=== PATIENT | male | born 1950 | race Caucasian/White ===

== ENCOUNTER 2017-05-18 12:58 | Inpatient (IN) ==
[2017-05-18] MEDS ORDERED: ALBUTEROL 2.5 MG/3 ML NEB RESP TX STA (14:10)
[2017-05-18 14:22] LABS: Basophils # 0.1 10*3/uL (0.0-0.2); Basophils % 0.7 % (0.0-0.8); Eosinophils # 0.2 10*3/uL (0.0-0.87); Hemoglobin 13.2 GM/DL (14.0-18.0); Immature Granulocytes % 0.3 %; Immature Granulocytes Absolute 0.02 #; Lymphocytes # 1.4 10*3/uL (1.4-4.0); Lymphocytes % 19.5 % (21.2-54.2); Mean Corpuscular HGB Conc 31.4 GM/DL (32-36); Mean Corpuscular Hemoglobin 27 PG (27-34); Mean Corpuscular Volume 86.8 FL (87-102); Mean Platelet Volume 9.7 FL (9.6-12.0); Monocytes # 0.7 10*3/uL (0.11-0.8); Neutrophils # 5.1 10*3/uL (1.4-7.4); Neutrophils % 68.5 % (38.7-73.9); Platelet Count 300 T/CUMM (130-400); Red Blood Count 4.84 MC/CUMM (3.8-5.5); Red Cell Distribution Width 13.5 % (9.3-17.3); White Blood Count 7.4 T/CUMM (4-12)
[2017-05-18 14:28] LABS: PT Patient Result 10.2 SECS; Partial Thromboplastin Time 26.4 SECS (0-40)
[2017-05-18 14:36] LABS: Alanine Aminotransferase 17 U/L (16-61); Albumin 3.5 G/DL (3.4-5.0); Alkaline Phosphatase 335 U/L (45-117); Aspartate Amino Transferase 62 U/L (0-37); Blood Urea Nitrogen 22 MG/DL (7-18); Calcium 8.7 MG/DL (8.5-10.1); Glucose 90 MG/DL (74-106); Osmolality,Calculated 281.4 MOS/KG (273-304); Potassium 4.5 MMOL/L (3.5-5.1); Sodium 140 MMOL/L (136-145); Total Protein 6.3 G/DL (6.4-8.3); Troponin I Only < 0.015 NG/ML (0.00-0.045)
[2017-05-18] MEDS ORDERED: ONDANSETRON 4 MG/2 ML VIAL IV PRN (18:00)
[2017-05-18] MEDS ORDERED: ACETAMINOPHEN 325 MG TABLET PO PRN (18:00)
[2017-05-18] MEDS ORDERED: PNEUMOCOCCAL VACCINE (13 VALENT) 0.5 ML SYRINGE IM ONE (18:04)
[2017-05-18] MEDS: SODIUM CHLORIDE 0.9% 1,000 ML IV SCH (18:30)
[2017-05-18] MEDS: FERROUS SULFATE 325 MG TABLET PO SCH ×2 (20:29→21:00)
[2017-05-18] MEDS: DOCUSATE SODIUM 100 MG CAPSULE PO SCH ×2 (20:29→21:00)
[2017-05-18] MEDS: GABAPENTIN 300 MG CAPSULE PO SCH (20:29)
[2017-05-18] MEDS: CARBIDOPA/LEVODOPA 25-100 MG TABLET PO SCH ×2 (20:29→21:00)
[2017-05-18] MEDS: traZODone 50 MG TABLET PO SCH (20:30)
[2017-05-18] MEDS: TAMSULOSIN 0.4 MG CAPSULE PO SCH (20:30)
[2017-05-19 07:05] LABS: Barbiturates Screen,Urine Negative (Negative); Benzodiazepines Screen,Urine Negative (Negative); Cannabinoid Screen,Urine Negative (Negative); Opiate Screen,Urine Positive (Negative); Phencyclidine Screen,Urine Negative (Negative)
[2017-05-19] MEDS ORDERED: EMBEDA PO SCH (09:00)
[2017-05-19 09:11] LABS: Basophils % 0.6 % (0.0-0.8); Eosinophils # 0.2 10*3/uL (0.0-0.87); Eosinophils % 3.2 % (0.00-10.9); Hematocrit 43.6 VOL% (42.0-52.0); Hemoglobin 13.9 GM/DL (14.0-18.0); Immature Granulocytes % 0.5 %; Immature Granulocytes Absolute 0.03 #; Lymphocytes # 1.3 10*3/uL (1.4-4.0); Lymphocytes % 20.6 % (21.2-54.2); Mean Corpuscular HGB Conc 31.9 GM/DL (32-36); Mean Corpuscular Hemoglobin 27 PG (27-34); Mean Corpuscular Volume 85.5 FL (87-102); Mean Platelet Volume 9.7 FL (9.6-12.0); Monocytes # 0.6 10*3/uL (0.11-0.8); Monocytes % 9.2 % (1.7-12.7); Neutrophils # 4.1 10*3/uL (1.4-7.4); Neutrophils % 65.9 % (38.7-73.9); Platelet Count 296 T/CUMM (130-400); Red Cell Distribution Width 13.4 % (9.3-17.3); White Blood Count 6.2 T/CUMM (4-12)
[2017-05-19 09:20] LABS: Albumin 3.3 G/DL (3.4-5.0); Bilirubin,Direct 0.42 MG/DL (0.0-0.20); Bilirubin,Indirect 0.3 MG/DL (0.0-1.0); Bilirubin,Total 0.7 MG/DL (0.2-1.0); Calcium 8.8 MG/DL (8.5-10.1); Ferritin 152.8 ng/ml (26-388); Free T4 (Free Thyroxine) 0.96 NG/DL (0.76-1.46); Osmolality,Calculated 279.5 MOS/KG (273-304); Potassium 4.8 MMOL/L (3.5-5.1); Thyroid Stimulating Hormone 3.17 uIU/ml (0.358-3.74); Total Protein 6.4 G/DL (6.4-8.3); VLDL CHOLESTEROL 25.6 MG/DL
[2017-05-19] MEDS: CARBIDOPA/LEVODOPA 25-100 MG TABLET PO SCH ×4 (10:15→21:14)
[2017-05-19] MEDS: AMANTADINE 100 MG CAPSULE PO SCH (10:15)
[2017-05-19] MEDS: GABAPENTIN 300 MG CAPSULE PO SCH ×4 (10:15→21:13)
[2017-05-19] MEDS: TAMSULOSIN 0.4 MG CAPSULE PO SCH ×2 (10:15→21:15)
[2017-05-19] MEDS: FLUDROCORTISONE 0.1 MG TABLET PO SCH (10:15)
[2017-05-19] MEDS: MULTIVITAMIN (CENTRUM) TABLET PO SCH (10:16)
[2017-05-19] MEDS: DOCUSATE SODIUM 100 MG CAPSULE PO SCH ×2 (10:16→21:15)
[2017-05-19] MEDS: PANTOPRAZOLE 40 MG TABLET PO SCH (10:16)
[2017-05-19] MEDS: ESCITALOPRAM 10 MG TABLET PO SCH (10:16)
[2017-05-19] MEDS: FERROUS SULFATE 325 MG TABLET PO SCH ×2 (10:16→21:15)
[2017-05-19] MEDS: amLODIPine 5 MG TABLET PO SCH (10:22)
[2017-05-19] MEDS: ASPIRIN EC 81 MG TABLET PO SCH (12:01)
[2017-05-19] MEDS ORDERED: HEPARIN/NACL 0.9% 2 UNITS/ML 1,000 ML IV ONE (12:12)
[2017-05-19] MEDS ORDERED: LIDOCAINE 1% 20 ML VIAL ONE (12:12)
[2017-05-19] MEDS ORDERED: NITROGLYCERIN DRIP 50 MG/250 ML BOTTLE IV ONE (12:20)
[2017-05-19] MEDS ORDERED: VERAPAMIL 5 MG/2 ML VIAL ONE (12:20)
[2017-05-19] MEDS ORDERED: ENOXAPARIN 60 MG/0.6 ML SYRINGE ONE (12:56)
[2017-05-19] MEDS ORDERED: diphenhydrAMINE CAP 25 MG CAPSULE PO ONE (13:00)
[2017-05-19] MEDS ORDERED: DIAZEPAM 5 MG TABLET PO ONE (13:00)
[2017-05-19] MEDS: traZODone 50 MG TABLET PO SCH (21:14)
[2017-05-20 06:01] LABS: Basophils % 0.5 % (0.0-0.8); Eosinophils # 0.2 10*3/uL (0.0-0.87); Eosinophils % 3.5 % (0.00-10.9); Hematocrit 43.9 VOL% (42.0-52.0); Hemoglobin 13.9 GM/DL (14.0-18.0); Immature Granulocytes % 0.3 %; Immature Granulocytes Absolute 0.02 #; Lymphocytes # 1.1 10*3/uL (1.4-4.0); Mean Corpuscular HGB Conc 31.7 GM/DL (32-36); Mean Corpuscular Hemoglobin 27 PG (27-34); Mean Corpuscular Volume 84.9 FL (87-102); Mean Platelet Volume 9.6 FL (9.6-12.0); Monocytes # 0.6 10*3/uL (0.11-0.8); Monocytes % 9.7 % (1.7-12.7); Neutrophils # 4.3 10*3/uL (1.4-7.4); Platelet Count 255 T/CUMM (130-400); Red Blood Count 5.17 MC/CUMM (3.8-5.5); Red Cell Distribution Width 13.3 % (9.3-17.3); White Blood Count 6.3 T/CUMM (4-12)
[2017-05-20 06:12] LABS: Calcium 8.9 MG/DL (8.5-10.1); Osmolality,Calculated 280.4 MOS/KG (273-304); Potassium 4.5 MMOL/L (3.5-5.1)
[2017-05-20 06:13] LABS: Albumin 3.1 G/DL (3.4-5.0); Bilirubin,Total 1.1 MG/DL (0.2-1.0); Calcium 8.8 MG/DL (8.5-10.1); Osmolality,Calculated 279.4 MOS/KG (273-304); Potassium 4.5 MMOL/L (3.5-5.1); Total Protein 6.4 G/DL (6.4-8.3)
[2017-05-20] MEDS: FERROUS SULFATE 325 MG TABLET PO SCH ×2 (09:08→20:42)
[2017-05-20] MEDS: PANTOPRAZOLE 40 MG TABLET PO SCH (09:08)
[2017-05-20] MEDS: amLODIPine 5 MG TABLET PO SCH (09:08)
[2017-05-20] MEDS: MULTIVITAMIN (CENTRUM) TABLET PO SCH (09:09)
[2017-05-20] MEDS: DOCUSATE SODIUM 100 MG CAPSULE PO SCH ×2 (09:09→20:44)
[2017-05-20] MEDS: AMANTADINE 100 MG CAPSULE PO SCH (09:10)
[2017-05-20] MEDS: ESCITALOPRAM 10 MG TABLET PO SCH (09:10)
[2017-05-20] MEDS: GABAPENTIN 300 MG CAPSULE PO SCH ×4 (09:10→20:43)
[2017-05-20] MEDS: FLUDROCORTISONE 0.1 MG TABLET PO SCH (09:10)
[2017-05-20] MEDS: CARBIDOPA/LEVODOPA 25-100 MG TABLET PO SCH ×4 (09:10→20:43)
[2017-05-20] MEDS: TAMSULOSIN 0.4 MG CAPSULE PO SCH ×2 (09:10→20:43)
[2017-05-20] MEDS: SODIUM CHLORIDE 0.9% 1,000 ML IV SCH ×2 (10:01)
[2017-05-20 11:26] LABS: Hepatitis A Ab IgM Quant 0.05 Index; Hepatitis A Ab IgM Result Negative (Negative); Hepatitis B Core IgM Quant 0.22 Index; Hepatitis B Core IgM Result Negative (Negative); Hepatitis B Surface Ag Quant < 0.10 Index; Hepatitis B Surface Ag Result Negative (Negative); Hepatitis C Virus Ab Quant 0.04 Index; Hepatitis C Virus Ab Result Negative (Negative)
[2017-05-20 14:07] LABS: Apearance,Urine CLEAR (Clear); Bilirubin,Urine Negative (Negative); Blood, Urine Negative (Negative); Glucose,Urine (UA) Negative (Negative); Ketones,Urine Negative (Negative); Nitrite,Urine Negative (Negative); Protein,Urine Negative; Urine Color Yellow (Yellow); Urine Specific Gravity 1.008 (1.001-1.035); Urine Urobilinogen < 2.0 EU/DL (0.2-1.0); WBC,Urine <1 /HPF (0-6)
[2017-05-20] MEDS: ASPIRIN EC 81 MG TABLET PO SCH (14:26)
[2017-05-20] MEDS ORDERED: MORPHINE 4 MG/1 ML VIAL IV ONE (14:44)
[2017-05-20] MEDS: traZODone 50 MG TABLET PO SCH (20:43)
[2017-05-21] MEDS: SODIUM CHLORIDE 0.9% 1,000 ML IV SCH (04:00)
[2017-05-21 07:01] LABS: Basophils % 0.2 % (0.0-0.8); Eosinophils # 0.1 10*3/uL (0.0-0.87); Hematocrit 38.7 VOL% (42.0-52.0); Hemoglobin 12.8 GM/DL (14.0-18.0); Immature Granulocytes % 0.3 %; Immature Granulocytes Absolute 0.03 #; Lymphocytes # 0.7 10*3/uL (1.4-4.0); Lymphocytes % 7.3 % (21.2-54.2); Mean Corpuscular HGB Conc 33.1 GM/DL (32-36); Mean Corpuscular Hemoglobin 28 PG (27-34); Monocytes # 1.1 10*3/uL (0.11-0.8); Monocytes % 10.7 % (1.7-12.7); Neutrophils % 80.5 % (38.7-73.9); Platelet Count 250 T/CUMM (130-400); Red Blood Count 4.66 MC/CUMM (3.8-5.5); Red Cell Distribution Width 13.5 % (9.3-17.3); White Blood Count 9.9 T/CUMM (4-12)
[2017-05-21 07:35] LABS: Calcium 8.5 MG/DL (8.5-10.1); Osmolality,Calculated 279.5 MOS/KG (273-304); Potassium 4.1 MMOL/L (3.5-5.1)
[2017-05-21] MEDS: TAMSULOSIN 0.4 MG CAPSULE PO SCH ×2 (08:12→20:32)
[2017-05-21] MEDS: DOCUSATE SODIUM 100 MG CAPSULE PO SCH ×2 (08:12→20:32)
[2017-05-21] MEDS: ESCITALOPRAM 10 MG TABLET PO SCH (08:12)
[2017-05-21] MEDS: MULTIVITAMIN (CENTRUM) TABLET PO SCH (08:12)
[2017-05-21] MEDS: AMANTADINE 100 MG CAPSULE PO SCH (08:13)
[2017-05-21] MEDS: CARBIDOPA/LEVODOPA 25-100 MG TABLET PO SCH ×4 (08:13→20:33)
[2017-05-21] MEDS: GABAPENTIN 300 MG CAPSULE PO SCH ×4 (08:13→20:33)
[2017-05-21] MEDS: amLODIPine 5 MG TABLET PO SCH (12:15)
[2017-05-21] MEDS: FERROUS SULFATE 325 MG TABLET PO SCH ×2 (12:15→20:32)
[2017-05-21] MEDS: ASPIRIN EC 81 MG TABLET PO SCH (12:16)
[2017-05-21] MEDS: PANTOPRAZOLE 40 MG TABLET PO SCH (12:16)
[2017-05-21] MEDS: PIPERACILLIN/TAZOBACTAM 3,375 MG in SODIUM CHLORIDE 0.9% 100 ML IV SCH (15:50)
[2017-05-21] MEDS: HYDROmorphone 2 MG/1 ML VIAL IV PRN (15:51)
[2017-05-21] MEDS: traZODone 50 MG TABLET PO SCH (20:32)
[2017-05-22] MEDS: PIPERACILLIN/TAZOBACTAM 3,375 MG in SODIUM CHLORIDE 0.9% 100 ML IV SCH ×3 (01:04→21:29)
[2017-05-22 05:24] LABS: Basophils % 0.3 % (0.0-0.8); Eosinophils # 0.2 10*3/uL (0.0-0.87); Eosinophils % 3.1 % (0.00-10.9); Hematocrit 39.2 VOL% (42.0-52.0); Hemoglobin 13.3 GM/DL (14.0-18.0); Immature Granulocytes % 0.5 %; Immature Granulocytes Absolute 0.03 #; Lymphocytes # 0.7 10*3/uL (1.4-4.0); Lymphocytes % 12.2 % (21.2-54.2); Mean Corpuscular HGB Conc 33.9 GM/DL (32-36); Mean Corpuscular Hemoglobin 28 PG (27-34); Mean Corpuscular Volume 82.4 FL (87-102); Mean Platelet Volume 9.7 FL (9.6-12.0); Monocytes # 0.8 10*3/uL (0.11-0.8); Monocytes % 13.6 % (1.7-12.7); Neutrophils # 4.3 10*3/uL (1.4-7.4); Neutrophils % 70.3 % (38.7-73.9); Platelet Count 262 T/CUMM (130-400); Red Blood Count 4.76 MC/CUMM (3.8-5.5); Red Cell Distribution Width 13.5 % (9.3-17.3); White Blood Count 6.1 T/CUMM (4-12)
[2017-05-22 05:29] LABS: PT Patient Result 10.9 SECS
[2017-05-22 06:03] LABS: Albumin 2.9 G/DL (3.4-5.0); Bilirubin,Total 4.8 MG/DL (0.2-1.0); Calcium 8.7 MG/DL (8.5-10.1); Osmolality,Calculated 280.4 MOS/KG (273-304); Potassium 3.9 MMOL/L (3.5-5.1)
[2017-05-22 06:11] LABS: Albumin 2.9 G/DL (3.4-5.0); Bilirubin,Direct 3.84 MG/DL (0.0-0.20); Bilirubin,Indirect 0.7 MG/DL (0.0-1.0); Bilirubin,Total 4.5 MG/DL (0.2-1.0); Total Protein 6.1 G/DL (6.4-8.3)
[2017-05-22] MEDS: SODIUM CHLORIDE 0.9% 1,000 ML IV SCH (09:01)
[2017-05-22] MEDS: MULTIVITAMIN (CENTRUM) TABLET PO SCH (09:02)
[2017-05-22] MEDS: FERROUS SULFATE 325 MG TABLET PO SCH (09:02)
[2017-05-22] MEDS: TAMSULOSIN 0.4 MG CAPSULE PO SCH (09:02)
[2017-05-22] MEDS: DOCUSATE SODIUM 100 MG CAPSULE PO SCH (09:02)
[2017-05-22] MEDS: ESCITALOPRAM 10 MG TABLET PO SCH (09:03)
[2017-05-22] MEDS: amLODIPine 5 MG TABLET PO SCH (09:03)
[2017-05-22] MEDS: GABAPENTIN 300 MG CAPSULE PO SCH ×3 (09:03→17:03)
[2017-05-22] MEDS: PANTOPRAZOLE 40 MG TABLET PO SCH (09:03)
[2017-05-22] MEDS: AMANTADINE 100 MG CAPSULE PO SCH (09:04)
[2017-05-22] MEDS: CARBIDOPA/LEVODOPA 25-100 MG TABLET PO SCH ×3 (09:04→17:03)
[2017-05-22] MEDS ORDERED: fentaNYL 100 MCG/2 ML VIAL ONE (10:27)
[2017-05-22] MEDS ORDERED: MIDAZOLAM 2 MG/2 ML VIAL ONE (10:28)
[2017-05-22] MEDS ORDERED: PROPOFOL 200 MG/20 ML VIAL IV ONE (10:38)
[2017-05-22] MEDS ORDERED: LIDOCAINE 1% 5 ML VIAL ONE (10:38)
[2017-05-22] MEDS ORDERED: ONDANSETRON 4 MG/2 ML VIAL ONE (10:38)
[2017-05-22] MEDS ORDERED: INDOMETHACIN SUPP 50 MG SUPP RECTAL ONE (11:00)
[2017-05-23] MEDS: DOCUSATE SODIUM 100 MG CAPSULE PO SCH ×3 (00:20→21:35)
[2017-05-23] MEDS: traZODone 50 MG TABLET PO SCH ×2 (00:20→21:35)
[2017-05-23] MEDS: FERROUS SULFATE 325 MG TABLET PO SCH ×3 (00:21→21:35)
[2017-05-23] MEDS: TAMSULOSIN 0.4 MG CAPSULE PO SCH ×3 (00:21→21:35)
[2017-05-23] MEDS: GABAPENTIN 300 MG CAPSULE PO SCH ×5 (00:21→21:35)
[2017-05-23] MEDS: CARBIDOPA/LEVODOPA 25-100 MG TABLET PO SCH ×5 (00:22→21:35)
[2017-05-23 06:17] LABS: Basophils # 0.1 10*3/uL (0.0-0.2); Basophils % 0.4 % (0.0-0.8); Eosinophils # 0.2 10*3/uL (0.0-0.87); Eosinophils % 1.1 % (0.00-10.9); Hematocrit 37.2 VOL% (42.0-52.0); Hemoglobin 12.4 GM/DL (14.0-18.0); Immature Granulocytes % 0.7 %; Immature Granulocytes Absolute 0.15 #; Lymphocytes # 1.1 10*3/uL (1.4-4.0); Lymphocytes % 5.6 % (21.2-54.2); Mean Corpuscular HGB Conc 33.3 GM/DL (32-36); Mean Corpuscular Hemoglobin 28 PG (27-34); Mean Corpuscular Volume 83.2 FL (87-102); Mean Platelet Volume 9.7 FL (9.6-12.0); Monocytes # 2.5 10*3/uL (0.11-0.8); Monocytes % 12.1 % (1.7-12.7); Neutrophils # 16.2 10*3/uL (1.4-7.4); Neutrophils % 80.1 % (38.7-73.9); Red Blood Count 4.47 MC/CUMM (3.8-5.5); Red Cell Distribution Width 13.8 % (9.3-17.3)
[2017-05-23 06:20] LABS: Platelet Count 193 T/CUMM (130-400); White Blood Count 20.2 T/CUMM (4-12)
[2017-05-23] MEDS: PIPERACILLIN/TAZOBACTAM 3,375 MG in SODIUM CHLORIDE 0.9% 100 ML IV SCH ×3 (06:20→20:32)
[2017-05-23] MEDS: SODIUM CHLORIDE 0.9% 1,000 ML IV SCH (06:23)
[2017-05-23 06:25] LABS: Band Neutrophils 7 % (0-10); Eosinophils 2 % (0-10); Hypochromasia 1+; Lymphocytes 6 % (20-55); Ovalocytes Slight; Platelet Estimate Adequate; Segmented Neutrophils 73 % (50-85); Total Cells Counted 100
[2017-05-23 06:26] LABS: Giant Platelets Few
[2017-05-23 06:40] LABS: Calcium 8.1 MG/DL (8.5-10.1); Osmolality,Calculated 278.7 MOS/KG (273-304); Potassium 4.1 MMOL/L (3.5-5.1)
[2017-05-23] MEDS: AMANTADINE 100 MG CAPSULE PO SCH (09:13)
[2017-05-23] MEDS: amLODIPine 5 MG TABLET PO SCH (09:13)
[2017-05-23] MEDS: PANTOPRAZOLE 40 MG TABLET PO SCH (09:13)
[2017-05-23] MEDS: ESCITALOPRAM 10 MG TABLET PO SCH (09:14)
[2017-05-23] MEDS: MULTIVITAMIN (CENTRUM) TABLET PO SCH (09:14)
[2017-05-23] MEDS ORDERED: SEVOFLURANE 1 UNIT/15 MINUTE INH ONE (13:52)
[2017-05-23] MEDS ORDERED: PHENYLEPHRINE 1 MG/10 ML SYRINGE IV ONE (13:53)
[2017-05-23] MEDS ORDERED: ONDANSETRON 4 MG/2 ML VIAL ONE (13:53)
[2017-05-23] MEDS ORDERED: ROCURONIUM 100 MG/10 ML VIAL IV ONE (13:53)
[2017-05-23] MEDS ORDERED: MIDAZOLAM 2 MG/2 ML VIAL ONE (13:53)
[2017-05-23] MEDS ORDERED: GLYCOPYRROLATE 0.4 MG/2 ML VIAL ONE (13:53)
[2017-05-23] MEDS ORDERED: fentaNYL 100 MCG/2 ML VIAL ONE (13:53)
[2017-05-23] MEDS ORDERED: NEOSTIGMINE 10 MG/10 ML VIAL ONE (13:54)
[2017-05-23] MEDS: HYDROmorphone 2 MG/1 ML VIAL IV PRN ×2 (20:43→23:13)
[2017-05-24] MEDS: HYDROmorphone 2 MG/1 ML VIAL IV PRN (04:56)
[2017-05-24] MEDS: PIPERACILLIN/TAZOBACTAM 3,375 MG in SODIUM CHLORIDE 0.9% 100 ML IV SCH ×2 (05:31→13:09)
[2017-05-24 05:38] LABS: Basophils % 0.3 % (0.0-0.8); Eosinophils # 0.1 10*3/uL (0.0-0.87); Eosinophils % 0.4 % (0.00-10.9); Hematocrit 37.6 VOL% (42.0-52.0); Hemoglobin 12.1 GM/DL (14.0-18.0); Immature Granulocytes % 1.1 %; Immature Granulocytes Absolute 0.15 #; Lymphocytes # 0.8 10*3/uL (1.4-4.0); Lymphocytes % 6.2 % (21.2-54.2); Mean Corpuscular HGB Conc 32.2 GM/DL (32-36); Mean Corpuscular Hemoglobin 27 PG (27-34); Mean Corpuscular Volume 85.1 FL (87-102); Mean Platelet Volume 10.5 FL (9.6-12.0); Monocytes # 1.5 10*3/uL (0.11-0.8); Monocytes % 11.2 % (1.7-12.7); Neutrophils # 10.6 10*3/uL (1.4-7.4); Neutrophils % 80.8 % (38.7-73.9); Platelet Count 199 T/CUMM (130-400); Red Blood Count 4.42 MC/CUMM (3.8-5.5); Red Cell Distribution Width 13.9 % (9.3-17.3); White Blood Count 13.1 T/CUMM (4-12)
[2017-05-24 06:12] LABS: Hypochromasia 1+; Ovalocytes Slight; Platelet Estimate Adequate
[2017-05-24 06:13] LABS: Giant Platelets Few
[2017-05-24 06:29] LABS: Albumin 2.7 G/DL (3.4-5.0); Bilirubin,Total 1.9 MG/DL (0.2-1.0); Osmolality,Calculated 284.3 MOS/KG (273-304); Total Protein 5.9 G/DL (6.4-8.3)
[2017-05-24 11:30] VITALS: BP 102/55
[2017-05-24] MEDS: FERROUS SULFATE 325 MG TABLET PO SCH (13:08)
[2017-05-24] MEDS: MULTIVITAMIN (CENTRUM) TABLET PO SCH (13:08)
[2017-05-24] MEDS: PANTOPRAZOLE 40 MG TABLET PO SCH (13:08)
[2017-05-24] MEDS: GABAPENTIN 300 MG CAPSULE PO SCH (13:08)
[2017-05-24] MEDS: amLODIPine 5 MG TABLET PO SCH (13:08)
[2017-05-24] MEDS: ESCITALOPRAM 10 MG TABLET PO SCH (13:08)
[2017-05-24] MEDS: TAMSULOSIN 0.4 MG CAPSULE PO SCH (13:08)
[2017-05-24] MEDS: DOCUSATE SODIUM 100 MG CAPSULE PO SCH (13:08)
[2017-05-24] MEDS: AMANTADINE 100 MG CAPSULE PO SCH (13:09)
[2017-05-24] MEDS: CARBIDOPA/LEVODOPA 25-100 MG TABLET PO SCH (13:09)
[2017-05-24] MEDS: SODIUM CHLORIDE 0.9% 1,000 ML IV SCH ×2 (14:30→14:31)
== END 2017-05-24 14:10 | disposition home or self-care (01) | DRG 418 ==
LOC: N.ED 12:58 → N.EDINP 12:58 → N.2E 18:01
PROVIDERS: ADMIT Family Medicine; ATTEND Family Medicine
PROC: CLCCHCL (ICD-10-PCS; 2017-05-19 13:15)
PROC: ERCPWSP (ICD-10-PCS; 2017-05-22 11:35)
PROC: LAPCHOL (2017-05-23 14:50)

== ENCOUNTER 2017-07-04 18:44 | Inpatient (IN) ==
[2017-07-04] MEDS ORDERED: SODIUM CHLORIDE 0.9% 500 ML IV STA (19:33)
[2017-07-04] MEDS ORDERED: ASPIRIN EC 81 MG TABLET PO STA (19:33)
[2017-07-04 19:56] LABS: Basophils # 0.1 10*3/uL (0.0-0.2); Basophils % 0.3 % (0.0-0.8); Eosinophils # 0.3 10*3/uL (0.0-0.87); Eosinophils % 1.8 % (0.00-10.9); Hematocrit 34.7 VOL% (42.0-52.0); Hemoglobin 10.9 GM/DL (14.0-18.0); Immature Granulocytes % 0.5 %; Immature Granulocytes Absolute 0.08 #; Lymphocytes # 1.4 10*3/uL (1.4-4.0); Lymphocytes % 9.4 % (21.2-54.2); Mean Corpuscular HGB Conc 31.4 GM/DL (32-36); Mean Corpuscular Hemoglobin 27 PG (27-34); Mean Corpuscular Volume 85.5 FL (87-102); Mean Platelet Volume 9.2 FL (9.6-12.0); Monocytes # 1.8 10*3/uL (0.11-0.8); Monocytes % 12.1 % (1.7-12.7); Neutrophils # 11.5 10*3/uL (1.4-7.4); Neutrophils % 75.9 % (38.7-73.9); Platelet Count 367 T/CUMM (130-400); Red Blood Count 4.06 MC/CUMM (3.8-5.5); Red Cell Distribution Width 13.5 % (9.3-17.3); White Blood Count 15.2 T/CUMM (4-12)
[2017-07-04 20:01] LABS: PT Patient Result 10.5 SECS
[2017-07-04] MEDS ORDERED: ASPIRIN CHEW 81 MG TABLET PO ONE (20:04)
[2017-07-04 20:27] LABS: Lactic Acid 1.3 MMOL/L (0.4-2.0)
[2017-07-04 20:35] LABS: Alanine Aminotransferase 12 U/L (16-61); Alkaline Phosphatase 301 U/L (45-117); Aspartate Amino Transferase 37 U/L (0-37); Blood Urea Nitrogen 52 MG/DL (7-18); CKMB % 5.4 %; Calcium 8.5 MG/DL (8.5-10.1); Glucose 136 MG/DL (74-106); Potassium 3.9 MMOL/L (3.5-5.1); Sodium 136 MMOL/L (136-145); Total Protein 7.7 G/DL (6.4-8.3)
[2017-07-04 20:40] LABS: Ammonia 40 UMOL/L (11-32); Prolactin 29.8 NG/ML
[2017-07-04 21:27] LABS: Apearance,Urine CLOUDY (Clear); Bacteria,Urine Few /HPF (Few); Bilirubin,Urine Negative (Negative); Blood, Urine Small mg/dL (Negative); Glucose,Urine (UA) 50 mg/dL (Negative); Hyaline Casts,Urine 3 /LPF (0-3); Ketones,Urine 5 mg/dL (Negative); Mucus,Urine Occasional /LPF (Occasional); Nitrite,Urine Negative (Negative); Protein,Urine 100 MG/DL; Squamous Epithelial Cell,Urine Occasional /HPF (0-10); Urine Color Amber (Yellow); Urine Specific Gravity 1.017 (1.001-1.035); Urine Urobilinogen < 2.0 EU/DL (0.2-1.0); WBC,Urine 5 /HPF (0-6)
[2017-07-04 21:35] LABS: Barbiturates Screen,Urine Negative (Negative); Benzodiazepines Screen,Urine Negative (Negative); Cannabinoid Screen,Urine Negative (Negative); Opiate Screen,Urine Positive (Negative); Phencyclidine Screen,Urine Negative (Negative)
[2017-07-04] MEDS ORDERED: NALOXONE 0.4 MG/ML VIAL ONE (22:03)
[2017-07-04] MEDS ORDERED: PROPOFOL 1,000 MG/100 ML BOTTLE IV ONE (22:16)
[2017-07-04] MEDS ORDERED: VECURONIUM 10 MG VIAL IV ONE (22:22)
[2017-07-04] MEDS ORDERED: ETOMIDATE 20 MG/10 ML VIAL IV ONE (22:22)
[2017-07-04 22:28] LABS: ABG Base Excess -1.6 MMOL/L (-2.5-2.5); ABG HCO3 23.1 MMOL/L (20-26); ABG Oxygen Saturation 99.9 % (95-100); ABG PCO2 45.8 MM HG (35-48); ABG PH 7.334 (7.35-7.45); ABG TCO2 22.4 MMOL/L (23-27)
[2017-07-05] MEDS ORDERED: ONDANSETRON 4 MG/2 ML VIAL IV PRN (00:45)
[2017-07-05] MEDS ORDERED: ACETAMINOPHEN 325 MG TABLET PO PRN (00:45)
[2017-07-05] MEDS: SODIUM CHLORIDE 0.9% 1,000 ML IV SCH ×6 (02:01→22:05)
[2017-07-05] MEDS: NON-FORMULARY MEDICATION (Morphine Sulfate/Naltrexone [Embeda 20/0.8] 1 CAPSULE) PO SCH (02:01)
[2017-07-05] MEDS: PROPOFOL 1,000 MG/100 ML BOTTLE IV SCH ×4 (02:01→22:26)
[2017-07-05] MEDS: cefTRIAXone 1,000 MG in SYRINGE 1 EACH IV SCH (02:11)
[2017-07-05 03:05] LABS: Basophils % 0.2 % (0.0-0.8); Eosinophils # 0.4 10*3/uL (0.0-0.87); Eosinophils % 3.4 % (0.00-10.9); Hemoglobin 10.1 GM/DL (14.0-18.0); Immature Granulocytes % 0.4 %; Immature Granulocytes Absolute 0.05 #; Lymphocytes # 1.2 10*3/uL (1.4-4.0); Lymphocytes % 9.8 % (21.2-54.2); Mean Corpuscular HGB Conc 32.6 GM/DL (32-36); Mean Corpuscular Hemoglobin 27 PG (27-34); Mean Corpuscular Volume 82.9 FL (87-102); Mean Platelet Volume 9.3 FL (9.6-12.0); Monocytes # 1.4 10*3/uL (0.11-0.8); Monocytes % 11.1 % (1.7-12.7); Neutrophils # 9.4 10*3/uL (1.4-7.4); Neutrophils % 75.1 % (38.7-73.9); Platelet Count 323 T/CUMM (130-400); Red Blood Count 3.74 MC/CUMM (3.8-5.5); Red Cell Distribution Width 13.5 % (9.3-17.3); White Blood Count 12.6 T/CUMM (4-12)
[2017-07-05 03:39] LABS: ABG Base Excess -1.6 MMOL/L (-2.5-2.5); ABG HCO3 23.1 MMOL/L (20-26); ABG Oxygen Saturation 98.8 % (95-100); ABG PCO2 46.4 MM HG (35-48); ABG PH 7.331 (7.35-7.45); ABG TCO2 22.4 MMOL/L (23-27); Allen Test Positive; Pt O2 Delivery Device Ventilator
[2017-07-05 06:30] LABS: CKMB % 4.6 %; Troponin I Only 1.98 NG/ML (0.00-0.045)
[2017-07-05 07:02] LABS: Calcium 8.2 MG/DL (8.5-10.1)
[2017-07-05 07:03] LABS: Bilirubin,Total 0.4 MG/DL (0.2-1.0); Osmolality,Calculated 293.3 MOS/KG (273-304); Potassium 3.9 MMOL/L (3.5-5.1)
[2017-07-05 07:04] LABS: Risk Ratio 3.17; VLDL CHOLESTEROL 22.4 MG/DL
[2017-07-05 07:15] LABS: Albumin 2.7 G/DL (3.4-5.0)
[2017-07-05] MEDS: OMEGA 3 ACID ETHYL ESTERS 1 GM CAPSULE PO SCH (08:57)
[2017-07-05] MEDS: DOCUSATE SODIUM 100 MG CAPSULE PO SCH ×2 (08:58→20:00)
[2017-07-05] MEDS: FERROUS SULFATE 325 MG TABLET PO SCH ×2 (08:58→20:00)
[2017-07-05] MEDS: FLUDROCORTISONE 0.1 MG TABLET PO SCH (08:58)
[2017-07-05] MEDS: MULTIVITAMIN (CENTRUM) TABLET PO SCH (08:58)
[2017-07-05] MEDS: CARBIDOPA/LEVODOPA 25-100 MG TABLET PO SCH ×4 (08:58→20:00)
[2017-07-05] MEDS: GABAPENTIN 300 MG CAPSULE PO SCH ×2 (08:58→17:30)
[2017-07-05] MEDS: AMANTADINE 100 MG CAPSULE PO SCH (08:59)
[2017-07-05] MEDS: ESCITALOPRAM 10 MG TABLET PO SCH (08:59)
[2017-07-05] MEDS: TAMSULOSIN 0.4 MG CAPSULE PO SCH ×2 (08:59→20:00)
[2017-07-05] MEDS: PANTOPRAZOLE 40 MG VIAL IV SCH (08:59)
[2017-07-05] MEDS: ENOXAPARIN 30 MG/0.3 ML SYRINGE SUBCUT SCH (08:59)
[2017-07-05] MEDS ORDERED: DOCUSATE SODIUM 100 MG CAPSULE PO SCH (09:00)
[2017-07-05] MEDS ORDERED: NON-FORMULARY MEDICATION (Multivitamin [Multivitamins] 1 EACH) PO SCH (09:00)
[2017-07-05 10:14] LABS: CKMB % 3.8 %
[2017-07-05 10:15] LABS: Troponin I Only 1.33 NG/ML (0.00-0.045)
[2017-07-05] MEDS: ASPIRIN EC 81 MG TABLET PO SCH (12:15)
[2017-07-05 17:11] LABS: CKMB % 4.3 %
[2017-07-05 17:13] LABS: Troponin I Only 1.01 NG/ML (0.00-0.045)
[2017-07-05] MEDS: MORPHINE 4 MG/1 ML VIAL IV PRN (22:28)
[2017-07-06] MEDS: PROPOFOL 1,000 MG/100 ML BOTTLE IV SCH ×4 (00:30→23:00)
[2017-07-06] MEDS: SODIUM CHLORIDE 0.9% 1,000 ML IV SCH ×5 (00:47→23:55)
[2017-07-06] MEDS: cefTRIAXone 1,000 MG in SYRINGE 1 EACH IV SCH (01:20)
[2017-07-06] MEDS: MORPHINE 4 MG/1 ML VIAL IV PRN (03:56)
[2017-07-06 04:57] LABS: ABG Base Excess -2.2 MMOL/L (-2.5-2.5); ABG HCO3 22.6 MMOL/L (20-26); ABG Oxygen Saturation 98.6 % (95-100); ABG PCO2 39.9 MM HG (35-48); ABG PH 7.367 (7.35-7.45); ABG TCO2 20.8 MMOL/L (23-27); Allen Test Positive; Pt O2 Delivery Device Ventilator
[2017-07-06 05:29] LABS: Basophils # 0.1 10*3/uL (0.0-0.2); Basophils % 0.4 % (0.0-0.8); Eosinophils # 0.6 10*3/uL (0.0-0.87); Eosinophils % 5.2 % (0.00-10.9); Hematocrit 32.6 VOL% (42.0-52.0); Hemoglobin 10.4 GM/DL (14.0-18.0); Immature Granulocytes % 0.6 %; Immature Granulocytes Absolute 0.07 #; Lymphocytes # 1.3 10*3/uL (1.4-4.0); Lymphocytes % 10.9 % (21.2-54.2); Mean Corpuscular HGB Conc 31.9 GM/DL (32-36); Mean Corpuscular Hemoglobin 27 PG (27-34); Mean Corpuscular Volume 85.3 FL (87-102); Mean Platelet Volume 9.2 FL (9.6-12.0); Monocytes # 1.6 10*3/uL (0.11-0.8); Monocytes % 13.8 % (1.7-12.7); Neutrophils # 8.1 10*3/uL (1.4-7.4); Neutrophils % 69.1 % (38.7-73.9); Platelet Count 319 T/CUMM (130-400); Red Blood Count 3.82 MC/CUMM (3.8-5.5); Red Cell Distribution Width 13.2 % (9.3-17.3); White Blood Count 11.7 T/CUMM (4-12)
[2017-07-06 06:06] LABS: Albumin 2.4 G/DL (3.4-5.0); Bilirubin,Direct 0.21 MG/DL (0.0-0.20); Bilirubin,Indirect 0.5 MG/DL (0.0-1.0); Bilirubin,Total 0.7 MG/DL (0.2-1.0); Calcium 8.4 MG/DL (8.5-10.1); Osmolality,Calculated 285.3 MOS/KG (273-304); Potassium 4.3 MMOL/L (3.5-5.1); Total Protein 5.8 G/DL (6.4-8.3)
[2017-07-06 06:12] LABS: Troponin I Only 0.687 NG/ML (0.00-0.045)
[2017-07-06 06:48] LABS: Albumin 2.4 G/DL (3.4-5.0); Bilirubin,Total 0.6 MG/DL (0.2-1.0); Calcium 8.4 MG/DL (8.5-10.1); Osmolality,Calculated 283.4 MOS/KG (273-304); Potassium 4.3 MMOL/L (3.5-5.1); Total Protein 5.9 G/DL (6.4-8.3)
[2017-07-06] MEDS: FERROUS SULFATE 325 MG TABLET PO SCH ×2 (10:02→20:37)
[2017-07-06] MEDS: AMANTADINE 100 MG CAPSULE PO SCH (10:04)
[2017-07-06] MEDS: FLUDROCORTISONE 0.1 MG TABLET PO SCH (10:04)
[2017-07-06] MEDS: GABAPENTIN 300 MG CAPSULE PO SCH ×2 (10:05→18:08)
[2017-07-06] MEDS: MULTIVITAMIN (CENTRUM) TABLET PO SCH (10:07)
[2017-07-06] MEDS: TAMSULOSIN 0.4 MG CAPSULE PO SCH ×2 (10:07→20:37)
[2017-07-06] MEDS: DOCUSATE SODIUM 100 MG CAPSULE PO SCH ×2 (10:07→20:37)
[2017-07-06] MEDS: OMEGA 3 ACID ETHYL ESTERS 1 GM CAPSULE PO SCH (10:08)
[2017-07-06] MEDS: CARBIDOPA/LEVODOPA 25-100 MG TABLET PO SCH ×4 (10:13→20:37)
[2017-07-06] MEDS: ENOXAPARIN 30 MG/0.3 ML SYRINGE SUBCUT SCH (10:15)
[2017-07-06] MEDS: PANTOPRAZOLE 40 MG VIAL IV SCH (10:17)
[2017-07-06] MEDS: ESCITALOPRAM 10 MG TABLET PO SCH (10:34)
[2017-07-06] MEDS: METOPROLOL TARTRATE 25 MG TABLET PO SCH ×2 (12:28→20:37)
[2017-07-06] MEDS: ASPIRIN EC 81 MG TABLET PO SCH (12:28)
[2017-07-07] MEDS: cefTRIAXone 1,000 MG in SYRINGE 1 EACH IV SCH
[2017-07-07] MEDS: MORPHINE 4 MG/1 ML VIAL IV PRN ×2 (00:08→21:55)
[2017-07-07 04:39] LABS: Allen Test Positive; Pt O2 Delivery Device Ventilator
[2017-07-07 04:40] LABS: ABG Base Excess -2.4 MMOL/L (-2.5-2.5); ABG HCO3 22.4 MMOL/L (20-26); ABG Oxygen Saturation 98.1 % (95-100); ABG PCO2 35.1 MM HG (35-48); ABG PH 7.402 (7.35-7.45); ABG TCO2 19.8 MMOL/L (23-27)
[2017-07-07 04:44] LABS: Basophils % 0.3 % (0.0-0.8); Eosinophils # 0.3 10*3/uL (0.0-0.87); Eosinophils % 2.5 % (0.00-10.9); Hematocrit 34.4 VOL% (42.0-52.0); Hemoglobin 11.2 GM/DL (14.0-18.0); Immature Granulocytes % 0.4 %; Immature Granulocytes Absolute 0.04 #; Lymphocytes # 1.1 10*3/uL (1.4-4.0); Lymphocytes % 10.4 % (21.2-54.2); Mean Corpuscular HGB Conc 32.6 GM/DL (32-36); Mean Corpuscular Hemoglobin 27 PG (27-34); Mean Corpuscular Volume 82.9 FL (87-102); Mean Platelet Volume 9.1 FL (9.6-12.0); Monocytes # 1.2 10*3/uL (0.11-0.8); Monocytes % 11.4 % (1.7-12.7); Neutrophils # 7.6 10*3/uL (1.4-7.4); Platelet Count 340 T/CUMM (130-400); Red Blood Count 4.15 MC/CUMM (3.8-5.5); Red Cell Distribution Width 13.2 % (9.3-17.3); White Blood Count 10.1 T/CUMM (4-12)
[2017-07-07 05:08] LABS: Calcium 8.3 MG/DL (8.5-10.1); Osmolality,Calculated 280.4 MOS/KG (273-304); Potassium 4.1 MMOL/L (3.5-5.1)
[2017-07-07] MEDS: PROPOFOL 1,000 MG/100 ML BOTTLE IV SCH (07:26)
[2017-07-07] MEDS: SODIUM CHLORIDE 0.9% 1,000 ML IV SCH (08:01)
[2017-07-07] MEDS: MULTIVITAMIN (CENTRUM) TABLET PO SCH (09:07)
[2017-07-07] MEDS: FERROUS SULFATE 325 MG TABLET PO SCH ×2 (09:07→20:07)
[2017-07-07] MEDS: ENOXAPARIN 30 MG/0.3 ML SYRINGE SUBCUT SCH (09:07)
[2017-07-07] MEDS: CARBIDOPA/LEVODOPA 25-100 MG TABLET PO SCH ×4 (09:07→20:07)
[2017-07-07] MEDS: GABAPENTIN 300 MG CAPSULE PO SCH ×2 (09:08→17:34)
[2017-07-07] MEDS: AMANTADINE 100 MG CAPSULE PO SCH (09:08)
[2017-07-07] MEDS: FLUDROCORTISONE 0.1 MG TABLET PO SCH (09:08)
[2017-07-07] MEDS: OMEGA 3 ACID ETHYL ESTERS 1 GM CAPSULE PO SCH (09:08)
[2017-07-07] MEDS: ESCITALOPRAM 10 MG TABLET PO SCH (09:08)
[2017-07-07] MEDS: DOCUSATE SODIUM 100 MG CAPSULE PO SCH ×2 (09:08→20:07)
[2017-07-07] MEDS: PANTOPRAZOLE 40 MG VIAL IV SCH (09:09)
[2017-07-07] MEDS: TAMSULOSIN 0.4 MG CAPSULE PO SCH ×2 (09:09→20:07)
[2017-07-07] MEDS: METOPROLOL TARTRATE 25 MG TABLET PO SCH ×2 (09:09→20:07)
[2017-07-07] MEDS: MAGNESIUM SULF INJ 2 GM in SODIUM CHLORIDE 0.9% 1,000 ML IV SCH ×2 (09:37→17:33)
[2017-07-07] MEDS: ASPIRIN EC 81 MG TABLET PO SCH (12:57)
[2017-07-08] MEDS: cefTRIAXone 1,000 MG in SYRINGE 1 EACH IV SCH (00:55)
[2017-07-08] MEDS: MAGNESIUM SULF INJ 2 GM in SODIUM CHLORIDE 0.9% 1,000 ML IV SCH ×2 (02:00→15:00)
[2017-07-08 04:18] LABS: ABG Base Excess 0.5 MMOL/L (-2.5-2.5); ABG HCO3 24.9 MMOL/L (20-26); ABG Oxygen Saturation 98.1 % (95-100); ABG PCO2 36.9 MM HG (35-48); ABG PH 7.431 (7.35-7.45); ABG TCO2 22.2 MMOL/L (23-27)
[2017-07-08 04:47] LABS: Basophils % 0.4 % (0.0-0.8); Eosinophils # 0.2 10*3/uL (0.0-0.87); Eosinophils % 2.3 % (0.00-10.9); Hematocrit 33.4 VOL% (42.0-52.0); Hemoglobin 10.5 GM/DL (14.0-18.0); Immature Granulocytes % 0.4 %; Immature Granulocytes Absolute 0.04 #; Lymphocytes # 1.2 10*3/uL (1.4-4.0); Lymphocytes % 12.3 % (21.2-54.2); Mean Corpuscular HGB Conc 31.4 GM/DL (32-36); Mean Corpuscular Hemoglobin 26 PG (27-34); Mean Corpuscular Volume 83.3 FL (87-102); Mean Platelet Volume 9.1 FL (9.6-12.0); Monocytes % 10.7 % (1.7-12.7); Neutrophils % 73.9 % (38.7-73.9); Platelet Count 350 T/CUMM (130-400); Red Blood Count 4.01 MC/CUMM (3.8-5.5); Red Cell Distribution Width 12.9 % (9.3-17.3); White Blood Count 9.4 T/CUMM (4-12)
[2017-07-08 05:46] LABS: Alanine Aminotransferase < 9 U/L (16-61); Albumin 2.1 G/DL (3.4-5.0); Alkaline Phosphatase 229 U/L (45-117); Aspartate Amino Transferase 21 U/L (0-37); Blood Urea Nitrogen 11 MG/DL (7-18); Glucose 95 MG/DL (74-106); Osmolality,Calculated 279.3 MOS/KG (273-304); Potassium 3.7 MMOL/L (3.5-5.1); Sodium 141 MMOL/L (136-145); Total Protein 5.5 G/DL (6.4-8.3)
[2017-07-08] MEDS: FERROUS SULFATE 325 MG TABLET PO SCH ×2 (08:25→21:06)
[2017-07-08] MEDS: TAMSULOSIN 0.4 MG CAPSULE PO SCH ×2 (08:25→21:06)
[2017-07-08] MEDS: MULTIVITAMIN (CENTRUM) TABLET PO SCH (08:25)
[2017-07-08] MEDS: ESCITALOPRAM 10 MG TABLET PO SCH (08:25)
[2017-07-08] MEDS: METOPROLOL TARTRATE 25 MG TABLET PO SCH ×2 (08:25→21:08)
[2017-07-08] MEDS: AMANTADINE 100 MG CAPSULE PO SCH (08:25)
[2017-07-08] MEDS: GABAPENTIN 300 MG CAPSULE PO SCH ×2 (08:26→17:10)
[2017-07-08] MEDS: OMEGA 3 ACID ETHYL ESTERS 1 GM CAPSULE PO SCH (08:26)
[2017-07-08] MEDS: CARBIDOPA/LEVODOPA 25-100 MG TABLET PO SCH ×4 (08:26→21:06)
[2017-07-08] MEDS: PANTOPRAZOLE 40 MG VIAL IV SCH (08:27)
[2017-07-08] MEDS: ENOXAPARIN 40 MG/0.4 ML SYRINGE SUBCUT SCH (08:27)
[2017-07-08] MEDS: FLUDROCORTISONE 0.1 MG TABLET PO SCH (08:27)
[2017-07-08] MEDS: DOCUSATE SODIUM 100 MG CAPSULE PO SCH ×2 (08:42→21:09)
[2017-07-08] MEDS: NON-FORMULARY MEDICATION (Morphine Sulfate/Naltrexone [Embeda 20/0.8] 1 CAPSULE) PO SCH (12:01)
[2017-07-08] MEDS: ASPIRIN EC 81 MG TABLET PO SCH (12:34)
[2017-07-08] MEDS ORDERED: DIPHENOXYLATE/ATROPINE 2.5-0.025 MG TABLET PO PRN (16:57)
[2017-07-09] MEDS: cefTRIAXone 1,000 MG in SYRINGE 1 EACH IV SCH (00:43)
[2017-07-09] MEDS: NON-FORMULARY MEDICATION (Morphine Sulfate/Naltrexone [Embeda 20/0.8] 1 CAPSULE) PO SCH (01:17)
[2017-07-09 06:18] LABS: Basophils % 0.5 % (0.0-0.8); Eosinophils # 0.3 10*3/uL (0.0-0.87); Eosinophils % 3.3 % (0.00-10.9); Hematocrit 33.8 VOL% (42.0-52.0); Immature Granulocytes % 0.5 %; Immature Granulocytes Absolute 0.04 #; Lymphocytes # 1.1 10*3/uL (1.4-4.0); Lymphocytes % 12.7 % (21.2-54.2); Mean Corpuscular HGB Conc 32.5 GM/DL (32-36); Mean Corpuscular Hemoglobin 27 PG (27-34); Mean Corpuscular Volume 82.2 FL (87-102); Mean Platelet Volume 9.3 FL (9.6-12.0); Monocytes # 1.1 10*3/uL (0.11-0.8); Monocytes % 13.1 % (1.7-12.7); Neutrophils # 6.1 10*3/uL (1.4-7.4); Neutrophils % 69.9 % (38.7-73.9); Platelet Count 356 T/CUMM (130-400); Red Blood Count 4.11 MC/CUMM (3.8-5.5); Red Cell Distribution Width 12.9 % (9.3-17.3); White Blood Count 8.7 T/CUMM (4-12)
[2017-07-09] MEDS: AMANTADINE 100 MG CAPSULE PO SCH (08:00)
[2017-07-09] MEDS: CARBIDOPA/LEVODOPA 25-100 MG TABLET PO SCH (08:00)
[2017-07-09] MEDS: MULTIVITAMIN (CENTRUM) TABLET PO SCH (08:00)
[2017-07-09] MEDS: ESCITALOPRAM 10 MG TABLET PO SCH (08:00)
[2017-07-09] MEDS: METOPROLOL TARTRATE 25 MG TABLET PO SCH (08:01)
[2017-07-09] MEDS: GABAPENTIN 300 MG CAPSULE PO SCH (08:01)
[2017-07-09] MEDS: OMEGA 3 ACID ETHYL ESTERS 1 GM CAPSULE PO SCH (08:01)
[2017-07-09] MEDS: TAMSULOSIN 0.4 MG CAPSULE PO SCH (08:01)
[2017-07-09] MEDS: DOCUSATE SODIUM 100 MG CAPSULE PO SCH (08:01)
[2017-07-09] MEDS: ENOXAPARIN 40 MG/0.4 ML SYRINGE SUBCUT SCH (08:01)
[2017-07-09] MEDS: FLUDROCORTISONE 0.1 MG TABLET PO SCH (08:01)
[2017-07-09] MEDS: FERROUS SULFATE 325 MG TABLET PO SCH (08:01)
[2017-07-09] MEDS: PANTOPRAZOLE 40 MG VIAL IV SCH (08:02)
[2017-07-09 08:07] VITALS: BP 110/73
== END 2017-07-09 09:25 | disposition home or self-care (01) | DRG 682 ==
LOC: N.ED 18:44 → N.EDINP 23:01 → N.ICU 23:40 → N.2E 07-08 10:19
PROVIDERS: ADMIT Family Medicine; ATTEND Family Medicine